=== PATIENT | male | born 1945 | race Caucasian/White ===

== ENCOUNTER 2021-06-26 16:29 | Emergency (ER) | payer MEDICARE, OTHER, SELFPAY ==
[2021-06-26 16:49] VITALS: BP 131/86; PULSE 91; RESP 18; TEMP 36.3; O2SAT 97
--- NOTE | 2021-06-26 17:03 | ED.URI ---
HPI - URI/Sore Throat General Chief Complaint: Upper Respiratory Infection Stated Complaint: Cough Time Seen by Provider: 06/26/21 17:00 Source: patient and RN notes reviewed Mode of arrival: ambulatory Limitations: no limitations History of Present Illness HPI Narrative: 76-year male presents concern for 3-week history of productive, persistent cough. Reports history of chronic bronchitis. Reports he was a former smoker. He reports he has been taking Tylenol for his symptoms, he denies any other [id number] intervention. Reports he has an inhaler that he uses on a daily basis for his chronic bronchitis. This [place] from [place] town and does not recall the names of the medications he takes, reports he takes medication for high blood pressure, and acid reflux medication and gabapentin. He denies body aches, chills, sweats, fever, shortness of breath, nasal congestion, rhinorrhea, sore throat. Reports occasional headache after forceful coughing. Patient is vaccinated for Covid and denies known exposure MD elicited complaint: cough Related Data Allergies Allergy/AdvReac Type Severity Reaction Status Date / Time No Known Allergies Allergy Verified 06/26/21 16:48 Review of Systems Review of Systems: CONSTITUTIONAL: Denies malaise, chills, sweats, or fever. EYES: Denies visual changes, redness, or discharge. ENT: Denies rhinorrhea, congestion, sinus pain, otalgia or sore throat. CARDIOVASCULAR: Denies chest pain, palpitations, or edema. RESPIRATORY: Reports productive, forced cough. Denies dyspnea. GASTROINTESTINAL: Denies nausea, vomiting, diarrhea MUSCULOSKELETAL: Denies myalgia. NEUROLOGIC: Reports occasional headache. All systems reviewed & are unremarkable except as noted in HPI and below PMFSH Comments At time of signature, agree with nursing past medical, surgical, social and family history. There is no relevant family history pertinent to the presenting complaint Exam Narrative: GENERAL: Well-appearing, well-nourished, and in no acute distress. HEAD: Normocephalic EYES: PERRLA, conjunctivae clear ENT: Nares clear. Mucous membranes moist. TM pearly lopez with dull light reflex bilaterally; no tragal tenderness. Oropharynx not erythematous without lesions. Tonsils not enlarged and without exudate, no drooling, no hoarseness, no trismus, uvula midline. NECK: Supple. No lymphadenopathy CHEST: Clear to auscultation, breath sounds equal. No wheezing, rhonchi, rales, or stridor. No respiratory distress, speaks in full sentences. Forceful persistent cough noted HEART: Regular rate and rhythm. No murmur heard. SKIN: Warm, dry, no rash. NEURO: Alert and oriented x3. PSYCH: Normal mood and affect Course Course Emergency Course: Patient is aware of diagnosis, understands and agrees to treatment plan. Anticipatory guidance given. Patient agrees to follow-up as directed and is aware of reasons to seek care at the emergency department. Portions of this record may have been created with voice recognition software Vital Signs Vital signs: Vital Signs Temperature 97.3 F L 06/26/21 16:49 Pulse Rate 91 06/26/21 16:49 Respiratory Rate 18 06/26/21 16:49 Blood Pressure 131/86 06/26/21 16:49 Pulse Oximetry 97 06/26/21 16:49 Temperature 97.3 F L 06/26/21 16:49 Pulse Rate 91 06/26/21 16:49 Respiratory Rate 18 06/26/21 16:49 Blood Pressure 131/86 06/26/21 16:49 Pulse Oximetry 97 06/26/21 16:49 Reviewed. MDM - URI/Sore Throat MDM Narrative Medical decision making narrative: Differential diagnosis considered: Anderson virus, strep pharyngitis, allergic rhinitis, upper respiratory tract infection, sinusitis, rhinosinusitis, nasopharyngitis. viral pharyngitis, otitis media, otitis externa, pneumonia, bronchitis, viral cough syndrome, viral syndrome, and influenza. Exam findings show no acute concerns or changes; patient is non-toxic appearing and is in no distress. Patient is appropriate for outpa
== END 2021-06-26 17:22 | disposition home or self-care (01) ==
PROVIDERS: Emergency Provider Nurse Practitioner
DX: J40 Bronchitis, not specified as acute or chronic (principal); Z87.891 Personal history of nicotine dependence; E78.00 Pure hypercholesterolemia, unspecified; I10 Essential (primary) hypertension; K21.9 Gastro-esophageal reflux disease without esophagitis
CPT/HCPCS: 99203; G0463